=== PATIENT | male | born 1965 ===

== ENCOUNTER 2017-04-11 06:18 | Day surgery (SDC) | payer OTHER ==
[2017-04-11] MEDS ORDERED: Lactated Ringer's 1,000 ML IV ONE (08:00)
[2017-04-11] MEDS ORDERED: Propofol 10 mg/ml Inj (20 ML) ONE ×2 (08:05)
--- NOTE | 2017-04-11 08:06 | CP.SDSHP ---
Same Day Surgery H & P - History Proposed Procedure: colonoscopy Pre-Op Diagnosis: screening - Previous Medical/Surgical History Cardiac: Hypertension, ASHD/CAD - Allergies Allergies: Allergies POLLEN Allergy (Uncoded 04/11/17 06:45) CONGESTION SEASONAL Allergy (Uncoded 04/11/17 06:45) CONGESTION - Physical Exam General Appearance: NAD Vital Signs: Vital Signs 04/11/17 06:51 Temperature 97.8 F Pulse Rate 59 L Respiratory 19 Rate Blood Pressure 124/74 O2 Sat by Pulse 98 Oximetry Mental Status: Alert & Oriented x3 Neuro: WNL Heart: WNL Lungs: WNL GI: WNL - {Optional Preform as Required} Abdomen: WNL - Impression Pt. Evaluated Today:Candidate for Anesthesia & Procedure: Yes - Date & Time Date: 04/11/17 Time: 08:06 Short Stay Discharge - Short Stay Discharge Admitting Diagnosis/Reason for Visit: SCREENING Disposition: HOME/ ROUTINE Referrals: Balbir Cain MD [Primary Care Provider] -
[2017-04-11 08:48] VITALS: TEMP 97.7
[2017-04-11 09:42] VITALS: BP 114/56; PULSE 60; RESP 20; O2SAT 97
== END 2017-04-11 09:36 | disposition home or self-care (01) ==
LOC: C.ENDO 06:18
PROVIDERS: ATTEND Internal Medicine Gastroenterology
DX: D12.2 Benign neoplasm of ascending colon (principal); K64.8 Other hemorrhoids
CPT/HCPCS: 45388; 88305; J2704; J7120